=== PATIENT | male | born 1940 | race Caucasian/White ===

== ENCOUNTER → 2022-05-09 13:48 | Outpatient (BNVA) | payer MEDICARE, SELFPAY | PROVIDERS: PCP Family Medicine; Visit Provider Internal Medicine | DX: I10 Essential (primary) hypertension (principal); I25.10 Atherosclerotic heart disease of native coronary artery without angina pectoris; E78.49 Other hyperlipidemia; I25.2 Old myocardial infarction | CPT/HCPCS: 99214 ==

== ENCOUNTER → 2023-02-06 12:30 | Outpatient (BNVA) | payer MEDICARE, SELFPAY | PROVIDERS: PCP Family Medicine; Visit Provider Internal Medicine | DX: I25.10 Atherosclerotic heart disease of native coronary artery without angina pectoris (principal); I10 Essential (primary) hypertension; E78.49 Other hyperlipidemia; I25.2 Old myocardial infarction | CPT/HCPCS: 99214 ==

== ENCOUNTER 2023-04-03 13:19 | Outpatient (CLI) | payer MEDICARE, SELFPAY ==
--- NOTE | 2023-04-03 13:47 | XR_ITS ---
WS: [id number] DEXA (DUAL ENERGY X-RAY ABSORPTIOMETRY) Bone mineral density was performed using a [employer] machine. HISTORY: POSTMENOPAUSAL COMPARISON: None available. Lumbar spine BMD (L1-L4): 1.253 g/cm2 T score: 0.3 Z score: 1.0 Total hip BMD: Left: 0.852 g/cm2. T score: -1.7 Z score: -0.6 Right: 0.907 g/cm2. T score: -1.3 Z score: -0.2 10 year probability of a major osteoporotic fracture is 14.6%. XR/XR DEXA axial skeleton* 39532 IMPRESSION: OSTEOPENIA based upon the WHO classification for females.
== END 2023-04-03 13:20 | disposition home or self-care (01) ==
PROVIDERS: PCP Family Medicine; Visit Provider Family Medicine
DX: M85.80 Other specified disorders of bone density and structure, unspecified site (principal)
CPT/HCPCS: 77080

== ENCOUNTER 2023-05-25 14:07 | Emergency (ER) | payer MEDICARE, SELFPAY ==
[2023-05-25 14:07] VITALS: BMI 29.0
[2023-05-25 14:17] VITALS: BP 136/79; PULSE 80; RESP 16; TEMP 36.4; O2SAT 98
--- NOTE | 2023-05-25 14:18 | ECG_ITS ---
[facility] Test Date: 2023-05-25 Pat Name: Kai Owusu Department: Room: Gender: Male Personnel Associate: : 1940 Requested By: Polina Hamilton Order Number: [id number] Farnaz MD: Suzanna Castro M.D. Measurements Intervals [place] Rate: 70 P: 72 DC: 161 QRS: 53 QRSD: 89 T: 52 QT: 408 QTc: 441 Interpretive Statements SINUS RHYTHM LOW QRS VOLTAGE IN PRECORDIAL LEADS [QRS DEFLECTION < 1.0 mV IN CHEST LEADS] POSSIBLE RIGHT VENTRICULAR CONDUCTION DELAY [RSR (QR) IN V1/V2] Compared to ECG 01/19/2016 08:33:06 ST (T wave) deviation no longer present Prolonged QT interval no longer present Electronically Signed On 05-25-2023 17:17:48 CDT by Suzanna Castro M.D. [id number]
--- NOTE | 2023-05-25 14:46 | ED_ITS ---
HPI - Syncope General: Chief Complaint: Syncope Stated Complaint: SYNCOPE Time Seen by Provider: 05/25/23 14:07 Source: patient and family (Son) Mode of arrival: EMS History of Present Illness: This 82-year-old male with a history of coronary artery disease presents to the ER for evaluation of what seems to be a syncopal episode. He was out in the heat with the son getting his ready for the horses when he got a little overhea antoinette. So, patient went into the house to drink a glass of orange juice and candy bar. He was sitting down on his computer chair when son reports that patient suddenly became cold and clammy. His face was flushed and when son shook him, he did not respond, so the son called for help. Son believes incident lasted for about 5 minutes and patient started responding when they put a cold cloth over him. Patient denies chest pain before, during or after the incident. Seizures were not observed and patient did not fall to the ground. Currently, he is at his baseline. Patient was out in the form for a couple of hours prior to this incident. Associated symptoms: Deny chest pain, headache(s) or lightheadedness Review of Systems Const: Denies: chills, body aches or change in appetite Eyes: Denies: change in vision or eye discharge ENMT: Denies: throat pain, dental pain or nasal discharge Card: Denies: chest pain or lightheadedness : Denies: dysuria Musc: Denies: neck pain or back pain Neuro: Reports: other (syncope); Denies: headache(s) or weakness in extremities Psych: Denies: depression Eliud/Lymph: Denies: easy bruising All/Imm: Denies: urticaria, tongue swelling or facial swelling PFSH ED PFSH: Medical History CAD (coronary artery disease) History of MD (myocardial infarction) HTN (hypertension) Hyperlipidemia Family History Father , age 72 MD Myocardial infarction Sister , Bile Duct CA Cancer CAD (coronary artery disease) Mother , Age 85 MD CAD (coronary artery disease) Breast CA Myocardial infarction Other Hypertension Social History (Reviewed 05/04/23 @ 13:12 by Brain Dillon Smoking and tobacco status: never smoked Physical Exam Const: COMMON NORMALS: no acute distress, patient oriented x3, no limitations and alert HENMT: COMMON NORMALS: normocephalic HEAD & SCALP: normocephalic Eye: COMMON NORMALS: EOMs intact bilaterally Neck/C-Spine: COMMON NORMALS: full ROM and supple Chest: COMMONS NORMALS: normal inspection of the chest Resp: COMMON NORMALS: normal respiratory effort, No retractions, No use of accessory muscles and clear to auscultation bilaterally AUSCULTATION: clear to auscultation bilaterally Cardio: COMMON NORMALS: regular rate, regular rhythm and No murmurs present (Cardio) RATE: regular rate RHYTHM: regular rhythm GI: COMMON NORMALS: Normal to inspection, nondistended, normoactive bowel sounds present and non-tender : COMMON NORMALS: Yes no CVA tenderness BLADDER/KIDNEY EXAM: Yes no CVA tenderness Back/Pelvis: COMMON NORMALS: no CVA tenderness and no thoracic nor lumbar tenderness Extremity: GENERAL: Yes normal exam except as noted Neuro: COMMON NORMALS: patient oriented x3 and no focal motor deficits SENSORIUM/ORIENTATION: Yes alert Psych: COMMON NORMALS: mental status grossly normal and cooperative Course Vital Signs: Vital signs: Vital Signs Temperature 97.6 F 05/25/23 14:17 Pulse Rate 77 05/25/23 17:47 Respiratory Rate 16 05/25/23 14:17 Blood Pressure 136/79 05/25/23 14:17 Pulse Oximetry 98 05/25/23 14:17 Oxygen Delivery Me thod Room Air 05/25/23 14:17 MDM - Syncope Medical Decision Making Medical decision making: History as above. On ER arrival, patient was at his baseline and remained so throughout his stay. He had no chest pain or shortness of breath. Initial troponin and repeat troponin are nonsuggestive of acute coronary syndrome. IV fluids administered and patient felt considerably better. I believe that patient had a heat syncope. He was advised to avoid excessive exposure to heat and to remain well- hydrated. He will follow-up with his primary care physician and will return with any new concerns. Patient verbalized understanding and agrees with the plan. Lab Data 05/25/23 16:20 05/25/23 16:[address] 05/25/23 15:01 IMPRESSION: No acute intracranial abnormality. Laboratory Results WBC 13.1 10^3/uL (4.0-10.0) H 05/25/23 16:20 RBC 5.03 10^6/uL (4.1-5.3) 05/25/23 16:20 Hgb 17.0 g/dL (11.7-16.6) H 05/25/23 16:20 Hct 50.5 % (42.0-52.0) 05/25/23 16:20 MCV 100.4 fl (80-94) H 05/25/23 16:20 MCH 33.8 pg (28.0-34.0) 05/25/23 16:20 MCHC 33.7 g/dL (30.0-36.0) 05/25/23 16:20 RDW 12.4 % (12.1-15.1) 05/25/23 16:20 Plt Count 164 10^3/cmm (130-400) 05/25/23 16:20 MPV 10.8 fL (7.4-10.4) H 05/25/23 16:20 Neut % (Auto) 81.6 % 05/25/23 16:20 Lymph % (Auto) 9.1 % 05/25/23 16:20 [place] % (Auto) 6.1 % 05/25/23 16:20 Eos % (Auto) 2.6 % 05/25/23 16:20 Baso % (Auto) 0.2 % 05/25/23 16:20 Neut # (Auto) 10.72 10^3/uL (1.8-7.7) H 05/25/23 16:20 Lymph # (Auto) 1.2 10^3/uL (0.8-4.8) 05/25/23 16:20 [place] # (Auto) 0.8 10^3/uL (0.2-0.9) 05/25/23 16:20 Eos # (Auto) 0.3 10^3/uL (0.0-0.8) 05/25/23 16:20 Baso # (Auto) 0.0 10^3/uL (0.0-0.1) 05/25/23 16:20 Nucleated RBC % (auto) 0 % 05/25/23 16:20 Nucleated RBCs # 0.0 /100WBC 05/25/23 16:20 Sodium 143 mmol/L (136-145) 05/25/23 16:20 Potassium 4.4 mmol/L (3.5-5.1) 05/25/23 16:20 Chloride 104 mmol/L (98-107) 05/25/23 16:20 Carbon Dioxide 27 mmol/L (22-29) 05/25/23 16:20 Anion Gap 16.4 (5-19) 05/25/23 16:20 BUN 26 mg/dL (8-23) H 05/25/23 16:20 Creatinine 1.3 mg/dL (0.7-1.2) H 05/25/23 16:20 GFR Calculation Not Reportable 05/25/23 16:20 Glucose 70 mg/dL (65-115) 05/25/23 16:20 Calculated Osmolality 299 mOsm/kg (285-295) H 05/25/23 16:20 Calcium 9.9 mg/dL (8.5-10.5) 05/25/23 16:20 Total Bilirubin 1.9 mg/dL (0.15-1.2) H 05/25/23 16:20 AST 22 U/L (0-40) 05/25/23 16:20 ALT 21 U/L (0-41) 05/25/23 16:20 Alkaline Phosphatase 82 U/L (40-130) 05/25/23 16:20 Troponin T Gen 5 ng/L 27 ng/L (0-15) H 05/25/23 17:34 Total Protein 7.4 g/dL (6.6-8.7) 05/25/23 16:20 Albumin 4.8 g/dL (3.5-5.2) 05/25/23 16:20 Globulin 2.6 g/dL (1.3-4.6) 05/25/23 16:20 Urine Color Yellow (Yellow) 05/25/23 15:36 Urine Appearance Clear (CLEAR) 05/25/23 15:36 Urine pH 8 (5-7) H 05/25/23 15:36 Ur Specific [place] 1.005 (1.005-1.030) 05/25/23 15:36 Urine Protein Neg (Negative) 05/25/23 15:36 Urine Glucose (UA) Norm (Normal) 05/25/23 15:36 Urine Ketones Negative (Negative) 05/25/23 15:36 Urine Blood Neg (Negative) 05/25/23 15:36 Urine Nitrate Negative (Negative) 05/25/23 15:36 Urine Bilirubin Neg (Negative) 05/25/23 15:36 Prot Sulfosalicylic Acd Negative (Negative) 05/25/23 15:36 Urine Urobilinogen 1 mg/dL (Negative) H 05/25/23 15:36 Ur Leukocyte Esterase Negative (Negative) 05/25/23 15:36 EKG Data EKG 1: Interpretation: Sinus rhythm, rate of 70, normal axis, normal intervals, no STEMI. Discharge Plan Discharge Patient Disposition: Home Clinical Impression: Heat syncope, initial encounter Condition: Stable Prescriptions: No Action lisinopril 2.5 mg tablet 2.5 mg PO QAM allopurinol 300 mg tablet 150 mg PO BEDTIME clopidogrel 75 mg tablet 75 mg PO BEDTIME isosorbide mononitrate 30 mg tablet extended release 24 hr 30 mg PO BID potassium chloride 20 mEq tablet extended release 60 meq PO BID glimepiride 2 mg tablet 2 mg PO DAILY@12 fluticasone propionate [Allergy Relief (fluticasone)] 50 mcg/actuation sp ray,suspension 1 spray INTRANASAL DAILY PRN (Reason: Allergy Symptoms) Rx Instructions: administer into each nostril atorvastatin 20 mg tablet 20 mg PO BEDTIME loratadine [Claritin] 10 mg tablet 10 mg PO QAM acetaminophen [Tylenol Extra Strength] 500 mg tablet 1,000 mg PO TID nitroglycerin [Nitrostat] 0.4 mg tablet, sublingual 0.4 mg SUBLINGUAL Q5M PRN (Reason: chest pain) Qty: 25 2RF Rx Instructions: do not exceed 3 doses per episode mecobalamin (vitamin B12) 1,000 mcg tablet,chewable 1,000 mcg PO DAILY@12 cholecalciferol (vitamin D3) 10 mcg (400 unit) capsule 800 unit PO DAILY@12 ranolazine 500 mg tablet extended release 12 hr 500 mg PO QAM chlorthalidone 25 mg tablet 25 mg PO QAM Discharge Orders: Discharge ED (Routine); Ordered 05/25/23 Ordered By: Polina Yu Referrals: Manolo Holloway MD [Primary Care Provider] - Discharge Diet: Usual diet Discharge Activity: Resume usual activity Patient Instructions: Opioid Safety, Pain Management Activity Restrictions/Additional Instructions: Avoid excessive exposure to heat. Remain well-hydrated. Continue taking your usual home medications. Follow-up with your primary care physician in 3 to 5 days for reevaluation. Return if you develop any new or worsening symptoms. Coding Level of Care Code ED Braille Operator for Renetta Stock
--- NOTE | 2023-05-25 15:01 | CTR_ITS ---
PROCEDURE INFORMATION: Exam: CT Head Without Contrast Exam date and time: 05/25/2023 3:15 PM Age: 82 years old Clinical indication: Syncope and collapse; Additional info: Syncopal episode TECHNIQUE: Imaging protocol: Computed tomography of the head without contrast. Radiation optimization: All CT scans at this facility use at least one of these dose optimization techniques: automated exposure control; mA and/or kV adjustment per patient size (includes targeted exams where dose is matched to clinical indication); or iterative reconstruction. REPORTING DATA: Count of CT and Cardiac NM exams in prior 12 months: This patient has received 0 known CTs and 0 known cardiac nuclear medicine studies in the 12 months prior to the current study. COMPARISON: No relevant prior studies available. RADIATION DOSE METRICS: Total DLP (mGy-cm): 1107.18 FINDINGS: Brain: No hemorrhage. No edema. Mild diffuse cerebral atrophy and sequela of chronic small vessel ischemic disease. No mass effect. Cerebral ventricles: No ventriculomegaly. Paranasal sinuses: Visualized sinuses are unremarkable. No fluid levels. Mastoid air cells: Visualized mastoid air cells are well aerated. Bones/joints: Unremarkable. No acute fracture. Soft tissues: Unremarkable. CT/CT head wo con* [id number] IMPRESSION: No acute intracranial abnormality.
[2023-05-25] MEDS: sodium chloride 0.9% 1,000 ML 999 ML IV (15:21)
[2023-05-25 15:51] LABS: Add Urine Microscopic? NO; Charge for UA Resulting for Rev
[2023-05-25 16:23] LABS: Bilirubin Urine Neg (Negative); Blood Urine Neg (Negative); Glucose Urine UA Norm (Normal); Ketones Urine Negative (Negative); Leukocyte Esterase Urine Negative (Negative); Nitrate Urine Negative (Negative); Protein Urine Neg (Negative); Specific Gravity, Urine 1.005 (1.005-1.030); Sulfosalicylic Acid Urine Negative (Negative); Urine Appearance Clear (CLEAR); Urine Color Yellow (Yellow); Urobilinogen Urine 1 mg/dL (Negative); pH Urine 8 (5-7)
[2023-05-25 16:34] LABS: Basophils % 0.2 %; Eosinophils # 0.3 10^3/uL (0.0-0.8); Eosinophils % 2.6 %; Hematocrit 50.5 % (42.0-52.0); Lymphocytes # 1.2 10^3/uL (0.8-4.8); Lymphocytes % 9.1 %; Mean Corpuscular HGB Conc 33.7 g/dL (30.0-36.0); Mean Corpuscular Hemoglobin 33.8 pg (28.0-34.0); Mean Corpuscular Volume 100.4 fl (80-94); Mean Platelet Volume 10.8 fL (7.4-10.4); Monocytes # 0.8 10^3/uL (0.2-0.9); Monocytes % 6.1 %; Neutrophils # 10.72 10^3/uL (1.8-7.7); Neutrophils % 81.6 %; Nucleated Red Blood Cells % 0 %; Platelet Count 164 10^3/cmm (130-400); Red Blood Count 5.03 10^6/uL (4.1-5.3); Red Cell Distribution Width 12.4 % (12.1-15.1); White Blood Count 13.1 10^3/uL (4.0-10.0)
[2023-05-25 17:04] LABS: Alanine Aminotransferase 21 U/L (0-41); Albumin Level 4.8 g/dL (3.5-5.2); Alkaline Phosphatase 82 U/L (40-130); Anion Gap 16.4 (5-19); Aspartate Amino Transferase 22 U/L (0-40); Blood Urea Nitrogen 26 mg/dL (8-23); Calcium 9.9 mg/dL (8.5-10.5); Carbon Dioxide 27 mmol/L (22-29); Chloride 104 mmol/L (98-107); Creatinine Clr Calc Pharmacy 46.9397; Globulin 2.6 g/dL (1.3-4.6); Glucose 70 mg/dL (65-115); Osmolality Calculated 299 mOsm/kg (285-295); Potassium 4.4 mmol/L (3.5-5.1); Sodium 143 mmol/L (136-145); Total Bilirubin 1.9 mg/dL (0.15-1.2); Total Protein 7.4 g/dL (6.6-8.7); Troponin T (5th) Once 32 ng/L (0-15)
[2023-05-25 17:47] VITALS: PULSE 77
[2023-05-25 18:05] LABS: Troponin T (5th) Once 27 ng/L (0-15)
[2023-05-25 19:10] VITALS: PULSE 81; RESP 17
== END 2023-05-25 19:11 | disposition home or self-care (01) ==
PROVIDERS: Emergency Provider Family Medicine; PCP Family Medicine
DX: T67.1XXA Heat syncope, initial encounter (principal); X30.XXXA Exposure to excessive natural heat, initial encounter
CPT/HCPCS: 36415; 70450; 80053; 81003; 84484; 85025; 93005; 99285; J7030

== ENCOUNTER → 2024-02-17 12:34 | Outpatient (BNVA) | payer MEDICARE, SELFPAY | PROVIDERS: PCP Family Medicine; Visit Provider Internal Medicine | DX: I10 Essential (primary) hypertension (principal); I25.10 Atherosclerotic heart disease of native coronary artery without angina pectoris; E78.49 Other hyperlipidemia; Z87.891 Personal history of nicotine dependence | CPT/HCPCS: 99214 ==

== ENCOUNTER → 2025-02-15 12:05 | Outpatient (BNVA) | payer MEDICARE, SELFPAY | PROVIDERS: PCP Family Medicine; Visit Provider Internal Medicine Cardiovascular Disease | DX: R00.1 Bradycardia, unspecified (principal); I10 Essential (primary) hypertension; I25.10 Atherosclerotic heart disease of native coronary artery without angina pectoris; I73.00 Raynaud's syndrome without gangrene; J30.9 Allergic rhinitis, unspecified; Z79.01 Long term (current) use of anticoagulants; I25.2 Old myocardial infarction | CPT/HCPCS: 99214 ==

== ENCOUNTER 2025-04-13 12:20 | Outpatient (CLI) | payer MEDICARE, SELFPAY ==
--- NOTE | 2025-04-13 12:34 | XR_ITS ---
WS: [id number] SCREENING DEXA SCAN [facility] CLINICAL INFORMATION: OSTEOPOROSIS COMPARISON: 2022 FINDINGS: The L1-L4 bone mineral density measures 1.273 g/cm2. This corresponds to a T score score of 0.4 and Z score of 1.1. Left femoral neck bone mineral density measures 0.862 g/cm2. This corresponds to a T score of -1.7 and Z score of -0.5. Right femoral neck bone mineral density measures 0.917 g/cm2. This corresponds to a T score -1.3of and Z score of -0.1. Mean femoral neck bone mineral density measures 0.890 g/cm2. This corresponds to a T score of -1.5 and Z score of -0.3. XR/XR DEXA axial skeleton* [id number] IMPRESSION: Normal bone mineralization lumbar spine. Osteopenia femoral necks. Patient's FRAX calculated 10 year probability for major osteoporotic fracture i s 19.0% and osteoporotic hip fracture is 10.2%. Bone density lumbar spine increased 1.6% Bone density femoral necks increased 1.3%
== END 2025-04-13 12:21 | disposition home or self-care (01) ==
LOC: RAD 12:21
PROVIDERS: PCP Family Medicine; Visit Provider Family Medicine
DX: Z13.820 Encounter for screening for osteoporosis (principal); M81.0 Age-related osteoporosis without current pathological fracture; M85.851 Other specified disorders of bone density and structure, right thigh; M85.852 Other specified disorders of bone density and structure, left thigh; M85.88 Other specified disorders of bone density and structure, other site
CPT/HCPCS: 77080